=== PATIENT | male | born 1945 | race Caucasian/White ===

== ENCOUNTER 2021-03-29 21:20 | Emergency (ER) | payer OTHER ==
[~2021-03-29] VITALS: Ht 177.8 cm; Wt 85.7 kg
[2021-03-29 21:26] VITALS: BP_SYST 140
[2021-03-29 22:08] VITALS: BP_SYST 136
== END 2021-03-29 22:08 ==
LOC: SED 21:20
DX: Z02.89 Encounter for other administrative examinations (principal); I10 Essential (primary) hypertension; E78.00 Pure hypercholesterolemia, unspecified
CPT/HCPCS: 99283